=== PATIENT | male | born 1960 | race Caucasian/White ===

== ENCOUNTER 2017-08-01 18:48 | Inpatient (IN) | payer MEDICARE, OTHER ==
[~2017-08-01] VITALS: Ht 170.2 cm; Wt 87.8 kg
[~2017-08-01 18:48] MED LIST: ABRE10CR TOP; ATIV2INJ2 IM; BACL10TA GT; BISA10R PR; CLIN75S GT; DILA50CH GT; DIPH2%T PO/GT; DUONI NEB; FLEEENE3 PR; FOLI1TAB GT; LORA0.5T GT; LORA1TAB GT; METO25 G-TUBE; MIRA33502 GT; OMEP20TA G-TUBE; PHEN97.2 GT; PHENO15 GT; PROM25R PR; QUET1TAB67 GT; SERO50TA G-TUBE; STOO100C GT; TAB-TAB GT; VITA100020 G-TUBE
[2017-08-01 18:59] VITALS: BP 160/90; PULSE 90; RESP 18; TEMP 97.7; O2SAT 100
--- NOTE | 2017-08-01 20:08 | PD ---
HPI Chief Complaint: Medical Clearance Time Seen by Provider: 19:49 Travel History International Travel<30 days: No Contact w/Intl Traveler<30days: No Traveled to known affect area: No History of Present Illness HPI 57-year-old male with severe cerebral palsy presents to emergency Department for suspicion of aspiration after dinner tonight. Staff was concerned he may aspirated because he began choking on food during his meal. Today he is accompanied by Rosey who is a staff member at his facility. Patient is unable to tell me anything about what is going on today and is minimally interactive with me so history obtained form Rosey. Patient also has a G-tube and does consume pureed food orally. PFSH Past Medical History Cancer: No Cardiovascular Problems: No Developmental Delay: Yes (MENTAL RETARDATION) Diminished Hearing: No Gastrointestinal Disorders: Yes (CONSTIPATION, G TUBE) GERD: Yes Glaucoma: No Genitourinary: Yes (INCONTINENT OF URINE) Hepatitis: No Hypertension: Yes Implanted Vascular Access Dvce: Yes Medical other: Yes (DEVELOPMENTAL DELAY, GERD, SCOLIOSIS, ENCEPHALOPATHY, DYSPHAGIA) Musculoskeletal: Yes (SCOLIOSIS) Neurologic: Yes (ENCEPHALOPATHY, DYSPHAGIA, PROFOUND MR, CONVULSIVE D/O ) Psychiatric: Yes (PROFOUND MR) Respiratory: Yes (ASPIRATION PNEUMONIA) Immunizations Current: Yes Pneumonia: Yes (HX OF ASPIRATION) Seizures: Yes Thyroid Disease: No Past Surgical History Abdominal Surgery: Yes (G TUBE INSERTION) Body Medical Devices: G-TUBE Cardiac Surgery: No Ear Surgery: No Endocrine Surgery: No Eye Surgery: No Genitourinary Surgery: No Gynecologic Surgery: No Oral Surgery: No Thoracic Surgery: No Other Surgery: Yes (PEG TUBE) Social History Alcohol Use: No Tobacco Use: No Substance Use: No Allergies-Medications (Allergen,Severity, Reaction): Coded Allergies: lamotrigine (Unverified Allergy, Severe, 08/01/17) Reported Meds & Prescriptions Reported Meds & Active Scripts Active Reported B12 (Cyanocobalamin) 1,000 Mcg Tab G-TUBE Miralax Powder (Polyethylene Glycol 3350 Powder) 17 Gm Powd 17 Gm PO DAILY Mix and dissolve one measuring cap-ful (17 grams) in water or juice. Folic Acid 0.8 Mg Tab 1,000 Mcg PO DAILY Omeprazole 20 Mg Tab 20 Mg PO DAILY Furosemide 20 Mg Tab 20 Mg PO DAILY Metoprolol Tartrate 25 Mg Tab 25 Mg PO BID Acetaminophen ER (Acetaminophen) 650 Mg Tablet.er PO BID Lorazepam 0.5 Mg Tab 0.5 Mg PO BID PRN Baclofen 10 Mg Tab 10 Mg G-TUBE BID Lorazepam 1 Mg Tab 1 Mg PO DAILY PRN Seroquel (Quetiapine Fumarate) 25 Mg Tab 75 Mg PO DAILY Seroquel (Quetiapine Fumarate) 100 Mg Tab 100 Mg PO HS Phenobarbital 97.2 Mg Tab 113.46 Mg PO HS Docusate Sodium 100 Mg Cap 100 Mg G-TUBE DAILY Thera M Plus (Multivitamins/Minerals Therapeutic) 1 Tab 1 Tab G-TUBE DAILY Lorazepam 1 Mg Tab 1 Mg PO DAILY PRN Review of Systems ROS Limitations: Other: (- Severe crebral palsy- history from [place]) Respiratory: Positive: Cough Musculoskeletal: Positive: Limited ROM (muscle wasting with contractions of extremities.) Physical Exam Exam Limitations: Other: (Severe Cerebral palsy) Narrative GENERAL: Well-developed well-nourished, SKIN: Focused skin assessment warm/dry. HEAD: Atraumatic. Normocephalic. EYES: Pupils equal and round. No scleral icterus. No injection or drainage. Left eye blind ENT: No nasal bleeding or discharge. Mucous membranes moist. Unable to visualize the pharynx NECK: Trachea midline. No JVD. CARDIOVASCULAR: Regular rate and rhythm. No murmur appreciated. RESPIRATORY: No accessory muscle use. Clear to auscultation. Breath sounds equal bilaterally. Left lower lobes with mild rales. GASTROINTESTINAL: Abdomen soft, non-tender, nondistended. Hepatic and splenic margins not palpable. G tube in place, mid abdominal without obvious leakage, erythema, edema. MUSCULOSKELETAL: No obvious deformities. Muscle wasting and contractions of joints NEUROLOGICAL: Severe cerebral palsy, . Data Data Last Documented VS Vital Signs Date Time Temp Pulse Resp B/P (MAP) Pulse Ox O2 Delivery O2 Flow Rate FiO2 08/01/17 18:59 97.7 90 18 160/90 (113) 100 Orders Orders Chest, Pa & Lat (08/01/17 ) Complete Blood Count With Diff (08/01/17 21:09) Act Partial Throm Time (Ptt) (08/01/17 21:09) Comprehensive Metabolic Panel (08/01/17 21:09) Prothrombin Time / Inr (Pt) (08/01/17 21:09) Vancomycin Inj (Vancomycin Inj) (08/01/17 21:15) Piperacil-Tazo 4.5 Gm Premix (Zosyn 4.5 (08/01/17 21:15) Lorazepam Inj (Ativan Inj) (08/01/17 21:45) Blood Culture (08/01/17 21:40) Admit Order (Ed Use Only) (08/02/17 00:21) Labs Laboratory Tests Test 08/01/17 22:24 White Blood Count 7.8 TH/MM3 Red Blood Count 4.67 MIL/MM3 Hemoglobin 14.8 GM/DL Hematocrit 44.4 % Mean Corpuscular Volume 95.0 FL Mean Corpuscular Hemoglobin 31.7 PG Mean Corpuscular Hemoglobin Concent 33.4 % Red Cell Distribution Width 13.5 % Platelet Count 239 TH/MM3 Mean Platelet Volume 8.4 FL Neutrophils (%) (Auto) 66.0 % Lymphocytes (%) (Auto) 21.0 % Monocytes (%) (Auto) 10.5 % Eosinophils (%) (Auto) 2.0 % Basophils (%) (Auto) 0.5 % Neutrophils # (Auto) 5.1 TH/MM3 Lymphocytes # (Auto) 1.6 TH/MM3 Monocytes # (Auto) 0.8 TH/MM3 Eosinophils # (Auto) 0.2 TH/MM3 Basophils # (Auto) 0.0 TH/MM3 CBC Comment DIFF FINAL Differential Comment Prothrombin Time 11.3 SEC Prothromb Time International Ratio 1.0 RATIO Activated Partial Thromboplast Time 25.2 SEC Blood Urea Nitrogen 20 MG/DL Creatinine 0.83 MG/DL Random Glucose 92 MG/DL Total Protein 7.7 GM/DL Albumin 4.0 GM/DL Calcium Level 9.7 MG/DL Alkaline Phosphatase 147 U/L Aspartate Amino Transf (AST/SGOT) 18 U/L Alanine Aminotransferase (ALT/SGPT) 29 U/L Total Bilirubin 0.1 MG/DL Sodium Level 141 MEQ/L Potassium Level 4.2 MEQ/L Chloride Level 104 MEQ/L Carbon Dioxide Level 31.7 MEQ/L Anion Gap 5 MEQ/L Estimat Glomerular Filtration Rate 95 ML/MIN [facility] Medical Decision Making Medical Screen Exam Complete: Yes Emergency Medical Condition: Yes Differential Diagnosis Aspiration pneumonia versus community-acquired pneumonia versus aspiration Narrative Course 57-year-old male here with staff from [facility] after potential aspiration from dinner tonight. Physical exam revealed severe cerebral palsy patient in no acute distress. Difficulty assessing patient secondary to patient movement. Patient is unable to articulate any pain or discomfort but does not exhibit increased work of breathing or distress. G-tube in place without leakage, erythema, exudate. Chest x-ray demonstrates. Airspace consolidation at the lung bases and left perihilar region most characteristic of aspiration or pneumonia. No significant effusion. Ativan administered for IV access- multiple attempts made prior to administration. Will be admitted for pneumonia. Labs pending. Discussed case with Dr. Mitchell and he will take over care. Diagnosis Primary Impression: Aspiration into lower respiratory tract Qualified Codes: T17.800A - Unspecified foreign body in other parts of respiratory tract causing asphyxiation, initial encounter Referrals: Primary Care Physician Condition: Stable Jesi Wilson Aug 01, 2017 20:08
--- NOTE | 2017-08-01 20:56 | RADRPT ---
EXAM DATE/TIME: 08/01/2017 20:11 [place] COMPARISON: CHEST SINGLE AP, February 01, 2016, 12:12. INDICATIONS : Short of breath MEDICAL HISTORY : Metal retardation, GERD, hx of aspiration, and seizures SURGICAL HISTORY : Hx of G tube insertion ENCOUNTER: Initial ACUITY: 1 day PAIN SCORE: Non-responsive. LOCATION: chest FINDINGS: There is patchy airspace consolidation at the lung bases and left perihilar region. No significant ef fusion. Scoliosis. No pneumothorax. CONCLUSION: 1. Airspace consolidation at the lung bases and left perihilar region most characteristic of aspirati on or pneumonia. No significant effusion. Aditya Mccabe MD on August 01, 2017 at 20:54 Board Certified Radiologist. This report was verified electronically.
[2017-08-01] MEDS ORDERED: VANCOMYCIN INJ 1,750 MG in SODIUM CHLORID 0.9% 500 ML INJ 500 ML IV ONE (21:15)
[2017-08-01] MEDS ORDERED: PIPERACIL-TAZO 4.5 GM PREMIX 100 ML IV ONE (21:15)
[2017-08-01] MEDS ORDERED: LORazepam 2 MG/ML VIAL IM ONE (21:45)
[2017-08-01 22:36] LABS: AUTOMATED NEUTROPHIL # 5.1 TH/MM3 (1.8-7.7); BASOPHIL % 0.5 % (0.0-2.0); EOSINOPHIL # 0.2 TH/MM3 (0-0.4); HEMATOCRIT 44.4 % (39.0-51.0); HEMO FLAGS DIFF FINAL; LYMPHOCYTE # 1.6 TH/MM3 (1.0-4.8); MEAN CORPUSCULAR HEMOGLOBIN 31.7 PG (27.0-34.0); MEAN CORPUSCULAR HGB CONC 33.4 % (32.0-36.0); MONO % 10.5 % (0.0-8.0); PLATELET COUNT 239 TH/MM3 (150-450); RED BLOOD COUNT 4.67 MIL/MM3 (4.50-5.90); RED CELL DISTRIBUTION WIDTH 13.5 % (11.6-17.2); WHITE BLOOD COUNT 7.8 TH/MM3 (4.0-11.0)
[2017-08-01 22:55] LABS: APTT (PATIENT) 25.2 SEC (24.3-30.1); PROTHROMBIN TIME - PATIENT 11.3 SEC (9.8-11.6)
[2017-08-01 23:08] LABS: ANION GAP 5 MEQ/L (5-15); AST (GOT) 18 U/L (15-37); BICARBONATE 31.7 MEQ/L (21.0-32.0); BLOOD UREA NITROGEN 20 MG/DL (7-18); CHLORIDE 104 MEQ/L (98-107); GLOMERULAR FILTRATION RATE 95 ML/MIN (>89); POTASSIUM 4.2 MEQ/L (3.5-5.1); SODIUM (NA) 141 MEQ/L (136-145)
[2017-08-01 23:09] LABS: ALT (GPT) 29 U/L (12-78)
[2017-08-01 23:11] LABS: ALKALINE PHOSPHATASE 147 U/L (45-117); TOTAL BILIRUBIN ADULT 0.1 MG/DL (0.2-1.0)
[2017-08-02] VITALS (12 sets, daily range): BP systolic 121–170; BP diastolic 64–92; PULSE 70–108; RESP 17–22; TEMP 96.4–98.8; O2SAT 91–97
[2017-08-02] MEDS ORDERED: FURO20TA PO (00:07)
[2017-08-02] MEDS ORDERED: METO25TA3 PO (00:07)
[2017-08-02] MEDS ORDERED: FOLI800T PO (00:07)
[2017-08-02] MEDS ORDERED: OMEP20TA PO (00:07)
[2017-08-02] MEDS ORDERED: ACET650T39 PO (00:07)
[2017-08-02] MEDS ORDERED: LORA-373 PO (00:07)
[2017-08-02] MEDS ORDERED: CYAN1TAB24 G-TUBE (00:07)
[2017-08-02] MEDS ORDERED: PHENO100 PO (00:07)
[2017-08-02] MEDS ORDERED: SERO25TA PO (00:07)
[2017-08-02] MEDS ORDERED: SERO100T PO (00:07)
[2017-08-02] MEDS ORDERED: LORA1TAB12 PO (00:07)
[2017-08-02] MEDS ORDERED: BACL10TA G-TUBE (00:07)
[2017-08-02] MEDS ORDERED: THERM G-TUBE (00:07)
[2017-08-02] MEDS ORDERED: MIRA3350 PO (00:07)
[2017-08-02] MEDS ORDERED: DOCU100C G-TUBE (00:07)
--- NOTE | 2017-08-02 00:13 | PD ---
Physical Exam Narrative Patient was seen by my assistance and signed out to me. Data Data Last Documented VS Vital Signs Date Time Temp Pulse Resp B/P (MAP) Pulse Ox O2 Delivery O2 Flow Rate FiO2 08/01/17 18:59 97.7 90 18 160/90 (113) 100 Orders Orders Chest, Pa & Lat (08/01/17 ) Complete Blood Count With Diff (08/01/17 21:09) Act Partial Throm Time (Ptt) (08/01/17 21:09) Comprehensive Metabolic Panel (08/01/17 21:09) Prothrombin Time / Inr (Pt) (08/01/17 21:09) Vancomycin Inj (Vancomycin Inj) (08/01/17 21:15) Piperacil-Tazo 4.5 Gm Premix (Zosyn 4.5 (08/01/17 21:15) Lorazepam Inj (Ativan Inj) (08/01/17 21:45) Blood Culture (08/01/17 21:40) Labs Laboratory Tests Test 08/01/17 22:24 White Blood Count 7.8 TH/MM3 Red Blood Count 4.67 MIL/MM3 Hemoglobin 14.8 GM/DL Hematocrit 44.4 % Mean Corpuscular Volume 95.0 FL Mean Corpuscular Hemoglobin 31.7 PG Mean Corpuscular Hemoglobin Concent 33.4 % Red Cell Distribution Width 13.5 % Platelet Count 239 TH/MM3 Mean Platelet Volume 8.4 FL Neutrophils (%) (Auto) 66.0 % Lymphocytes (%) (Auto) 21.0 % Monocytes (%) (Auto) 10.5 % Eosinophils (%) (Auto) 2.0 % Basophils (%) (Auto) 0.5 % Neutrophils # (Auto) 5.1 TH/MM3 Lymphocytes # (Auto) 1.6 TH/MM3 Monocytes # (Auto) 0.8 TH/MM3 Eosinophils # (Auto) 0.2 TH/MM3 Basophils # (Auto) 0.0 TH/MM3 CBC Comment DIFF FINAL Differential Comment Prothrombin Time 11.3 SEC Prothromb Time International Ratio 1.0 RATIO Activated Partial Thromboplast Time 25.2 SEC Blood Urea Nitrogen 20 MG/DL Creatinine 0.83 MG/DL Random Glucose 92 MG/DL Total Protein 7.7 GM/DL Albumin 4.0 GM/DL Calcium Level 9.7 MG/DL Alkaline Phosphatase 147 U/L Aspartate Amino Transf (AST/SGOT) 18 U/L Alanine Aminotransferase (ALT/SGPT) 29 U/L Total Bilirubin 0.1 MG/DL Sodium Level 141 MEQ/L Potassium Level 4.2 MEQ/L Chloride Level 104 MEQ/L Carbon Dioxide Level 31.7 MEQ/L Anion Gap 5 MEQ/L Estimat Glomerular Filtration Rate 95 ML/MIN [facility] Supervised Visit with MICHELLE: Yes Interpretation(s) 12:08 AM. Chest x-ray shows consolidation in the lung bases and left perihilar region. CBC within normal limit. CMP within normal limit. Vancomycin and Zosyn IV given. Diagnosis Primary Impression: Pneumonia Qualified Codes: J69.0 - Pneumonitis due to inhalation of food and vomit Admitting Information Admitting Physician Requests: Admit Referrals: Primary Care Physician Condition: Stable Chu Mitchell MD Aug 02, 2017 00:13
[2017-08-02] MEDS ORDERED: ACETAMINOPHEN/HYDROcodone 325 MG/5 MG TAB PO PRN (00:30)
[2017-08-02] MEDS ORDERED: SODIUM CHLORIDE 0.9% FLUSH 10 ML FLUSH IV FLUSH PRN (00:30)
[2017-08-02] MEDS ORDERED: NALOXONE HCL 0.4 MG/ML AMP IV PUSH PRN (00:30)
[2017-08-02] MEDS ORDERED: MAGNESIUM HYDROXIDE SUSP 30 ML CUP PO PRN (00:30)
[2017-08-02] MEDS ORDERED: ONDANSETRON HCL 4 MG/2 ML VIAL IVP PRN (00:30)
[2017-08-02] MEDS: SODIUM CHLOR 0.9% 1000 ML INJ 1,000 ML IV SCH ×3 (01:35→20:21)
[2017-08-02] MEDS: ENOXAPARIN SODIUM 40 MG/0.4 ML SYRINGE SQ SCH (01:36)
[2017-08-02] MEDS ORDERED: LORazepam 1 MG TAB PO PRN (03:00)
--- NOTE | 2017-08-02 03:11 | HHI.HP ---
[facility] Service [facility] Primary Care Physician Unknown Admission Diagnosis pneumonia. Diagnoses: (1) Pneumonia Diagnosis: Principal (2) Aspiration into lower respiratory tract Diagnosis: Principal (3) Gastrostomy tube dysfunction Diagnosis: Principal (4) Choking Diagnosis: Principal Travel History International Travel<30 Days: No Contact w/Intl Traveler <30 Da: No Traveled to Known Affected Are: No History of Present Illness Mr. Stephens is a 57 year old male. He has a history of cerebral palsy and has been nonverbal for life. He is unable to provide any history and his cognitive status makes him noncontributory. He was brought in by care providers secondary to suspicion of aspiration. He has been having increased cough recently. Imaging in the ER reveals that he does have evidence for aspiration pneumonia. Vancomycin and Zosyn have been provided. Patient is unable to express any pain or discomfort. Review of Systems ROS Limitations: Clinical Condition, Altered Mental Status, Unresponsive Constitutional: DENIES: Fever, Chills, Change in appetite Endocrine: DENIES: Heat/cold intolerance Eyes: DENIES: Blurred vision, Diplopia, Eye inflammation, Eye pain Cardiovascular: DENIES: Chest pain, Palpitations, Syncope Gastrointestinal: DENIES: Abdominal pain, Black stools, Bloody stools Past Family Social History Past Medical History per report interstitial lung disease MR/cerebral palsy/nonverbal Seizures poor swallowing Past Surgical History G-tube placement Reported Medications Reported Meds & Active Scripts Active Reported B12 (Cyanocobalamin) 1,000 Mcg Tab G-TUBE Miralax Powder (Polyethylene Glycol 3350 Powder) 17 Gm Powd 17 Gm PO DAILY Mix and dissolve one measuring cap-ful (17 grams) in water or juice. Folic Acid 0.8 Mg Tab 1,000 Mcg PO DAILY Omeprazole 20 Mg Tab 20 Mg PO DAILY Furosemide 20 Mg Tab 20 Mg PO DAILY Metoprolol Tartrate 25 Mg Tab 25 Mg PO BID Acetaminophen ER (Acetaminophen) 650 Mg Tablet.er PO BID Lorazepam 0.5 Mg Tab 0.5 Mg PO BID PRN Baclofen 10 Mg Tab 10 Mg G-TUBE BID Lorazepam 1 Mg Tab 1 Mg PO DAILY PRN Seroquel (Quetiapine Fumarate) 25 Mg Tab 75 Mg PO DAILY Seroquel (Quetiapine Fumarate) 100 Mg Tab 100 Mg PO HS Phenobarbital 97.2 Mg Tab 113.46 Mg PO HS Docusate Sodium 100 Mg Cap 100 Mg G-TUBE DAILY Thera M Plus (Multivitamins/Minerals Therapeutic) 1 Tab 1 Tab G-TUBE DAILY Lorazepam 1 Mg Tab 1 Mg PO DAILY PRN Allergies: Coded Allergies: lamotrigine (Unverified Allergy, Severe, 08/01/17) Active Ordered Medications Administered Medications Medications (Trade) Dose Ordered Sig/Wang Route PRN Reason Start Time Stop Time Status Last Admin Dose Admin Sodium Chloride 1,000 ml @ 100 mls/hr Q10H IV 08/02/17 00:21 08/02/17 01:35 Sodium Chloride (NS Flush) 2 ml UNSCH PRN IV FLUSH FLUSH AFTER USING IV ACCESS 08/02/17 00:30 08/02/17 01:36 Enoxaparin Sodium (Lovenox Inj) 40 mg Q24H SQ 08/02/17 01:00 08/02/17 01:36 Family History None Social History lives at [facility]. No tobacco alcohol or or illicit drug abuse Physical Exam Vital Signs Vital Signs Date Time Temp Pulse Resp B/P (MAP) Pulse Ox O2 Delivery O2 Flow Rate FiO2 08/02/17 01:05 08/02/17 01:03 18 145/73 (97) 97 Room Air 08/01/17 18:59 97.7 90 18 160/90 (113) 100 Physical Exam GENERAL: NAD, A&Ox0, nonverbal HEAD: Normocephalic. NECK: Supple, trachea midline. No lymphadenopathy. EYES: No scleral icterus. No injection or drainage. CARDIOVASCULAR: Regular rate and rhythm without murmurs, gallops, or rubs. RESPIRATORY: Breath sounds equal bilaterally. No accessory muscle use. Coarse breath sounds bilaterally GASTROINTESTINAL: Abdomen soft, non-tender, nondistended. MUSCULOSKELETAL: No cyanosis, or edema. Diffuse contractures. SKIN: Warm and dry. NEURO: No focal neurological deficitis. Laboratory Laboratory Tests Test 08/01/17 22:24 White Blood Count 7.8 Red Blood Count 4.67 Hemoglobin 14.8 Hematocrit 44.4 Mean Corpuscular Volume 95.0 Mean Corpuscular Hemoglobin 31.7 Mean Corpuscular Hemoglobin Concent 33.4 Red Cell Distribution Width 13.5 Platelet Count 239 Mean Platelet Volume 8.4 Neutrophils (%) (Auto) 66.0 Lymphocytes (%) (Auto) 21.0 Monocytes (%) (Auto) 10.5 Eosinophils (%) (Auto) 2.0 Basophils (%) (Auto) 0.5 Neutrophils # (Auto) 5.1 Lymphocytes # (Auto) 1.6 Monocytes # (Auto) 0.8 Eosinophils # (Auto) 0.2 Basophils # (Auto) 0.0 CBC Comment DIFF FINAL Differential Comment Prothrombin Time 11.3 Prothromb Time International Ratio 1.0 Activated Partial Thromboplast Time 25.2 Blood Urea Nitrogen 20 Creatinine 0.83 Random Glucose 92 Total Protein 7.7 Albumin 4.0 Calcium Level 9.7 Alkaline Phosphatase 147 Aspartate Amino Transf (AST/SGOT) 18 Alanine Aminotransferase (ALT/SGPT) 29 Total Bilirubin 0.1 Sodium Level 141 Potassium Level 4.2 Chloride Level 104 Carbon Dioxide Level 31.7 Anion Gap 5 Estimat Glomerular Filtration Rate 95 Date/Time Source Procedure Growth Status 08/01/17 22:24 Blood Peripheral Aerobic Blood Culture Pending Received 08/01/17 22:24 Blood Peripheral Anaerobic Blood Culture Pending Received Result Diagram: 08/01/17222308/01/172223 Caprini VTE Risk Assessment Caprini VTE Risk Assessment: Mod/High Risk (score >= 2) Caprini Risk Assessment Model Point Value = 1 Point Value = 2 Point Value = 3 Point Value = 5 Age 41-60 Minor surgery BMI > 25 kg/m2 Swollen legs Varicose veins or History of unexplained or recurrent spontaneous Oral contraceptives or hormone replacement Sepsis (< 1 month) Serious lung disease, including pneumonia (< 1 month) Abnormal pulmonary function Acute myocardial infarction Congestive heart failure (< 1 month) History of inflammatory bowel disease Medical patient at bed rest Age 61-74 Arthroscopic surgery Major open surgery (> 45 min) Laparoscopic surgery (> 45 min) Malignancy Confined to bed (> 72 hours) Immobilizing plaster cast Central venous access Age >= 75 History of VTE Family history of VTE Factor V Leiden Prothrombin [id number] Lupus anticoagulant Anticardiolipin antibodies Elevated serum homocysteine Heparin-induced thrombocytopenia Other congenital or acquired thrombophilia Stroke (< 1 month) Elective arthroplasty Hip, pelvis, or leg fracture Acute spinal cord injury (< 1 month) Prophylaxis Regimen Total Risk Factor Score Risk Level Prophylaxis Regimen 0-1 Low Early ambulation 2 Moderate Order ONE of the following: *Sequential Compression Device (SCD) *Heparin 5000 units SQ BID 3-4 Higher Order ONE of the following medications: *Heparin 5000 units SQ TID *Enoxaparin/Lovenox 40 mg SQ daily (WT < 150 kg, CrCl > 30 mL/min) *Enoxaparin/Lovenox 30 mg SQ daily (WT < 150 kg, CrCl > 10-29 mL/min) *Enoxaparin/Lovenox 30 mg SQ BID (WT < 150 kg, CrCl > 30 mL/min) AND/OR *Sequential Compression Device (SCD) 5 or more Highest Order ONE of the following medications: *Heparin 5000 units SQ TID (Preferred with Epidurals) *Enoxaparin/Lovenox 40 mg SQ daily (WT < 150 kg, CrCl > 30 mL/min) *Enoxaparin/Lovenox 30 mg SQ daily (WT < 150 kg, CrCl > 10-29 mL/min) *Enoxaparin/Lovenox 30 mg SQ BID (WT < 150 kg, CrCl > 30 mL/min) AND *Sequential Compression Device (SCD) Assessment and Plan Problem List: (1) Gastrostomy tube dysfunction ICD Code: K94.23 - Gastrostomy tube dysfunction Status: Acute (2) Choking ICD Code: T17.308A - Choking Status: Acute (3) Pneumonia ICD Code: J18.9 - Pneumonia, unspecified organism Status: Acute (4) Aspiration into lower respiratory tract ICD Code: T17.800A - Unspecified foreign body in other parts of respiratory tract causing asphyxiation, initial encounter Status: Acute Assessment and Plan Assessment and plan 57-year-old male with cerebral palsy who is nonverbal, admitted with aspiration pneumonia Aspiration pneumonia Chronic dysphasia Chronic tube feeds Vancomycin Zosyn Monitor for improvement Speech therapy evaluation Resume tube feeds based on ST findings/recommendations Cerebral palsy Interstitial lung disease Seizure disorder No change to baseline treatments Supportive care DVT prophylaxis Lovenox Physician Certification 2 Midnight Certification Type: Admission for Inpatient Services Order for Inpatient Services The services are ordered in accordance with Medicare regulations or non- Medicare payer requirements, as applicable. In the case of services not specified as inpatient-only, they are appropriately provided as inpatient services in accordance with the 2-midnight benchmark. Estimated LOS (days): 4 days is the estimated time the patient will need to remain in the hospital, assuming treatment plan goals are met and no additional complications. Post-Hospital Plan: Home Problem Qualifiers (1) Pneumonia: Qualified Codes: J69.0 - Pneumonitis due to inhalation of food and vomit (2) Aspiration into lower respiratory tract: Qualified Codes: T17.800A - Unspecified foreign body in other parts of respiratory tract causing asphyxiation, initial encounter Eric Caruso MD Aug 02, 2017 03:11
[2017-08-02] MEDS ORDERED: Vancomycin Consult Pharmacy 1 EA OTHER SCH (03:15)
[2017-08-02] MEDS ORDERED: PILL SPLITTER OTHER PRN (03:15)
[2017-08-02] MEDS: PIPERACIL-TAZO 3.375 GM PREMIX 50 ML IV SCH ×2 (09:00→17:00)
[2017-08-02] MEDS: SODIUM CHLORIDE 0.9% FLUSH 10 ML FLUSH IV FLUSH SCH ×2 (09:00→21:00)
[2017-08-02] MEDS: QUEtiapine FUMARATE 25 MG TAB PO SCH (09:00)
[2017-08-02] MEDS: BACLOFEN 10 MG TAB G-TUBE SCH ×2 (09:00→21:37)
[2017-08-02] MEDS: PANTOPRAZOLE SOD 20 MG DELAYED RELEASE TAB PO SCH (09:00)
[2017-08-02] MEDS: MULTIVITAMINS/MINERALS THERAPEUTIC TAB G-TUBE SCH (09:00)
[2017-08-02] MEDS: METOPROLOL TARTRATE 25 MG TAB PO SCH ×2 (09:00→21:37)
[2017-08-02] MEDS: DOCUSATE SODIUM 50 MG/SENNA 8.6 MG TAB PO SCH ×2 (09:00→21:37)
[2017-08-02] MEDS: POLYETHYLENE GLYCOL 17 GM PKG PO SCH (09:00)
[2017-08-02] MEDS: FOLIC ACID 1 MG TAB PO SCH (09:00)
[2017-08-02] MEDS: DOCUSATE SODIUM 100 MG CAP G-TUBE SCH (09:00)
[2017-08-02] MEDS: FUROSEMIDE 20 MG TAB PO SCH (09:00)
--- NOTE | 2017-08-02 09:09 | EKG ---
Date Performed: 08/02/2017 Time Performed: 00:01:15 PTAGE: 57 years EKG: Sinus rhythm POSSIBLE LEFT ATRIAL ENLARGEMENT NONSPECIFIC T-WAVE ABNORMALITY BORDERLINE ECG PREVIOUS TRACING : 01/18/2010 10.41 No significant change from previous tracing noted. DOCTOR: Abrahan Coon Interpretating Date/Time 08/02/2017 09:08:46
--- NOTE | 2017-08-02 11:13 | HHI.PR ---
Subjective Remarks Follow-up pneumonia. Patient is nonverbal. He is coughing intermittently during exam. Objective Vitals Vital Signs Date Time Temp Pulse Resp B/P (MAP) Pulse Ox O2 Delivery O2 Flow Rate FiO2 08/02/17 08:13 96.4 77 17 144/75 (98) 93 08/02/17 08:00 98.3 83 20 131/92 (105) 93 08/02/17 05:12 97.6 80 18 121/64 (83) 93 08/02/17 02:09 74 08/02/17 01:30 98.3 75 18 145/91 (109) 92 08/02/17 01:30 Room Air 08/02/17 01:08 98.3 75 18 145/91 (109) 92 08/02/17 01:05 08/02/17 01:03 18 145/73 (97) 97 Room Air 08/01/17 18:59 97.7 90 18 160/90 (113) 100 I/O 08/01/17 08/01/17 08/01/17 08/02/17 08/02/17 08/02/17 07:00 15:00 23:00 07:00 15:00 23:00 Intake Total 865.5 ml Balance 865.5 ml Intake Oral 0 ml IV Total 865.5 ml # Voids 1 # Bowel Movements 0 Result Diagram: 08/01/17222308/01/17 2224 Imaging Last Impressions Chest X-Ray 08/01/17 0000 Signed Impressions: Service Date/Time: July 20:11 - CONCLUSION: 1. Airspace consolidation at the lung bases and left perihilar region most characteristic of aspiration or pneumonia. No significant effusion. dAitya Mccabe MD Objective Remarks General: No acute distress. Heart: Regular rate and rhythm. No murmur. Lungs: Coarse breath sounds bilaterally. Breathing is nonlabored. Abdomen: Soft, nontender, nondistended. Extremities: No lower extremity edema. Contractures of all 4 extremities noted. Psych: Alert, not oriented. Procedures None Urinary Catheter: No Vascular Central Line Catheter: No A/P Problem List: (1) Gastrostomy tube dysfunction ICD Code: K94.23 - Gastrostomy tube dysfunction Status: Acute (2) Choking ICD Code: T17.308A - Choking Status: Acute (3) Pneumonia ICD Code: J18.9 - Pneumonia, unspecified organism Status: Acute (4) Aspiration into lower respiratory tract ICD Code: T17.800A - Unspecified foreign body in other parts of respiratory tract causing asphyxiation, initial encounter Status: Acute Assessment and Plan 1. Aspiration pneumonia: Patient has chronic dysphagia and is on tube feeds. Continue IV antibiotics. Speech therapy eval ordered. 2. Cerebral palsy: Chronic. 3. Seizure disorder: Continue antiepileptic medications. 4. DVT prophylaxis: Lovenox. Problem Qualifiers (1) Pneumonia: Qualified Codes: J69.0 - Pneumonitis due to inhalation of food and vomit (2) Aspiration into lower respiratory tract: Qualified Codes: T17.800A - Unspecified foreign body in other parts of respiratory tract causing asphyxiation, initial encounter Levi Crabtree MD Aug 02, 2017 11:13
[2017-08-02] MEDS: VANCOMYCIN 1,500 MG/NS 500 ML IV SCH ×4 (12:41→23:00)
[2017-08-02] MEDS ORDERED: VANCOMYCIN INJ 1,000 MG in SODIUM CHLOR 0.9% 250 ML INJ 250 ML IV SCH (16:00)
[2017-08-02] MEDS: LORazepam 0.5 MG TAB PO PRN (17:46)
[2017-08-02] MEDS: QUEtiapine FUMARATE 100 MG TAB PO SCH (21:37)
[2017-08-02] MEDS: PHENobarbital 32.4 MG TAB G-TUBE SCH (21:37)
[2017-08-03 00:37] VITALS: BP 158/76; PULSE 63; RESP 20; TEMP 98.4; O2SAT 94
[2017-08-03] MEDS: PIPERACIL-TAZO 3.375 GM PREMIX 50 ML IV SCH ×2 (01:00→09:00)
[2017-08-03] MEDS: LORazepam 1 MG TAB PO PRN ×2 (02:10→16:17)
[2017-08-03] MEDS: ENOXAPARIN SODIUM 40 MG/0.4 ML SYRINGE SQ SCH (02:10)
[2017-08-03 04:20] VITALS: BP 117/63; PULSE 65; RESP 20; TEMP 98.7; O2SAT 92
[2017-08-03] MEDS: SODIUM CHLOR 0.9% 1000 ML INJ 1,000 ML IV SCH ×2 (06:21→21:43)
[2017-08-03 08:00] VITALS: BP 140/114; PULSE 70; RESP 20; TEMP 97.3; O2SAT 91
[2017-08-03 08:21] LABS: AUTOMATED NEUTROPHIL # 2.5 TH/MM3 (1.8-7.7); BASOPHIL % 0.5 % (0.0-2.0); EOSINOPHIL # 0.1 TH/MM3 (0-0.4); EOSINOPHIL % 3.1 % (0.0-4.0); HEMATOCRIT 42.5 % (39.0-51.0); HEMO FLAGS DIFF FINAL; LYMPH % 29.1 % (9.0-44.0); LYMPHOCYTE # 1.3 TH/MM3 (1.0-4.8); MEAN CELL VOLUME 95.3 FL (80.0-100.0); MEAN CORPUSCULAR HGB CONC 33.6 % (32.0-36.0); MONO % 9.5 % (0.0-8.0); NEUT % 57.8 % (16.0-70.0); PLATELET COUNT 198 TH/MM3 (150-450); RED BLOOD COUNT 4.46 MIL/MM3 (4.50-5.90); RED CELL DISTRIBUTION WIDTH 13.8 % (11.6-17.2); WHITE BLOOD COUNT 4.3 TH/MM3 (4.0-11.0)
[2017-08-03 08:58] LABS: ALKALINE PHOSPHATASE 135 U/L (45-117); ALT (GPT) 25 U/L (12-78); ANION GAP 8 MEQ/L (5-15); AST (GOT) 19 U/L (15-37); BICARBONATE 24.8 MEQ/L (21.0-32.0); BLOOD UREA NITROGEN 14 MG/DL (7-18); CHLORIDE 105 MEQ/L (98-107); GLOMERULAR FILTRATION RATE 159 ML/MIN (>89); POTASSIUM 4.1 MEQ/L (3.5-5.1); SODIUM (NA) 138 MEQ/L (136-145); TOTAL BILIRUBIN ADULT 0.3 MG/DL (0.2-1.0)
[2017-08-03] MEDS: SODIUM CHLORIDE 0.9% FLUSH 10 ML FLUSH IV FLUSH SCH ×2 (09:00→21:00)
[2017-08-03] MEDS: MULTIVITAMINS/MINERALS THERAPEUTIC TAB G-TUBE SCH (09:06)
[2017-08-03] MEDS: BACLOFEN 10 MG TAB G-TUBE SCH ×2 (09:06→21:43)
[2017-08-03] MEDS: METOPROLOL TARTRATE 25 MG TAB PO SCH ×2 (09:06→21:43)
[2017-08-03] MEDS: QUEtiapine FUMARATE 25 MG TAB PO SCH (09:07)
[2017-08-03] MEDS: PANTOPRAZOLE SOD 20 MG DELAYED RELEASE TAB PO SCH (09:07)
[2017-08-03] MEDS: FOLIC ACID 1 MG TAB PO SCH (09:07)
[2017-08-03] MEDS: FUROSEMIDE 20 MG TAB PO SCH (09:12)
[2017-08-03] MEDS: POLYETHYLENE GLYCOL 17 GM PKG PO SCH (09:12)
[2017-08-03] MEDS: DOCUSATE SODIUM 50 MG/SENNA 8.6 MG TAB PO SCH ×2 (09:12→21:43)
[2017-08-03] MEDS: DOCUSATE SODIUM 100 MG CAP G-TUBE SCH (09:12)
[2017-08-03] MEDS ORDERED: PHARMACY ORDERED LAB ONE (10:45)
[2017-08-03] MEDS: VANCOMYCIN 1,500 MG/NS 500 ML IV SCH ×2 (11:00)
[2017-08-03 12:00] VITALS: BP 138/79; PULSE 63; RESP 20; TEMP 97.4; O2SAT 96
--- NOTE | 2017-08-03 13:17 | HHI.PR ---
Subjective Remarks Follow up pneumonia. No events reported by nursing. Patient's diet advanced per speech therapy eval. Patient is nonverbal. Objective Vitals Vital Signs Date Time Temp Pulse Resp B/P (MAP) Pulse Ox O2 Delivery O2 Flow Rate FiO2 08/03/17 08:00 97.3 70 20 140/114 (123) 91 08/03/17 04:20 98.7 65 20 117/63 (81) 92 08/03/17 00:37 98.4 63 20 158/76 (103) 94 08/02/17 21:30 Room Air 08/02/17 20:23 98.1 70 22 170/76 (107) 93 08/02/17 20:00 70 08/02/17 18:50 17 08/02/17 16:00 97.4 77 20 169/88 (115) 91 I/O 08/02/17 08/02/17 08/02/17 08/03/17 08/03/17 08/03/17 07:00 15:00 23:00 07:00 15:00 23:00 Intake Total 865.5 ml 0 ml 0 ml Balance 865.5 ml 0 ml 0 ml Intake Oral 0 ml 0 ml 0 ml IV Total 865.5 ml # Voids 1 1 3 # Bowel Movements 0 0 Result Diagram: 08/03/17 0747 08/03/17 0747 Imaging Last Impressions Chest X-Ray 08/01/17 0000 Signed Impressions: Service Date/Time: July 20:11 - CONCLUSION: 1. Airspace consolidation at the lung bases and left perihilar region most characteristic of aspiration or pneumonia. No significant effusion. Aditya Mccabe MD Objective Remarks General: No acute distress. Heart: Regular rate and rhythm. No murmur. Lungs: Coarse breath sounds bilaterally. Breathing is nonlabored. Abdomen: Soft, nontender, nondistended. Extremities: No lower extremity edema. Contractures of all 4 extremities noted. Psych: Awake, nonverbal. Does not follow commands. Procedures None Urinary Catheter: No Vascular Central Line Catheter: No A/P Problem List: (1) Gastrostomy tube dysfunction ICD Code: K94.23 - Gastrostomy tube dysfunction Status: Acute (2) Choking ICD Code: T17.308A - Choking Status: Acute (3) Pneumonia ICD Code: J18.9 - Pneumonia, unspecified organism Status: Acute (4) Aspiration into lower respiratory tract ICD Code: T17.800A - Unspecified foreign body in other parts of respiratory tract causing asphyxiation, initial encounter Status: Acute Assessment and Plan 1. Aspiration pneumonia: Patient has chronic dysphagia and is on tube feeds. Continue IV antibiotics. Appreciate speech therapy recommendations (puree diet, pudding thick liquids). 2. Cerebral palsy: Chronic. 3. Seizure disorder: Continue antiepileptic medications. 4. DVT prophylaxis: Lovenox. Problem Qualifiers (1) Pneumonia: Qualified Codes: J69.0 - Pneumonitis due to inhalation of food and vomit (2) Aspiration into lower respiratory tract: Qualified Codes: T17.800A - Unspecified foreign body in other parts of respiratory tract causing asphyxiation, initial encounter Levi Crabtree MD Aug 03, 2017 13:17
[2017-08-03 16:00] VITALS: BP 99/78; PULSE 61; RESP 20; TEMP 98; O2SAT 94
[2017-08-03 20:00] VITALS: BP 128/83; PULSE 68; PULSE 72; RESP 22; TEMP 98.8; O2SAT 98
[2017-08-03] MEDS: QUEtiapine FUMARATE 100 MG TAB PO SCH (21:43)
[2017-08-03] MEDS: PHENobarbital 32.4 MG TAB G-TUBE SCH (21:43)
[2017-08-04] VITALS (7 sets, daily range): BP systolic 130–175; BP diastolic 64–99; PULSE 61–76; RESP 18–20; TEMP 97.3–99.5; O2SAT 94–95
[2017-08-04] MEDS: LORazepam 0.5 MG TAB PO PRN ×3 (00:13→23:48)
[2017-08-04] MEDS: VANCOMYCIN 1,500 MG/NS 500 ML IV SCH ×6 (00:13→22:51)
[2017-08-04] MEDS: ENOXAPARIN SODIUM 40 MG/0.4 ML SYRINGE SQ SCH (00:15)
[2017-08-04] MEDS: SODIUM CHLOR 0.9% 1000 ML INJ 1,000 ML IV SCH ×3 (02:21→22:21)
[2017-08-04] MEDS: PIPERACIL-TAZO 3.375 GM PREMIX 50 ML IV SCH ×3 (02:25→16:11)
[2017-08-04] MEDS: ACETAMINOPHEN/HYDROcodone 325 MG/10 MG TAB PO PRN ×3 (06:12→16:03)
[2017-08-04] MEDS: BACLOFEN 10 MG TAB G-TUBE SCH ×2 (08:25→20:25)
[2017-08-04] MEDS: DOCUSATE SODIUM 50 MG/SENNA 8.6 MG TAB PO SCH ×2 (08:25→20:25)
[2017-08-04] MEDS: QUEtiapine FUMARATE 25 MG TAB PO SCH (08:26)
[2017-08-04] MEDS: PANTOPRAZOLE SOD 20 MG DELAYED RELEASE TAB PO SCH (08:26)
[2017-08-04] MEDS: MULTIVITAMINS/MINERALS THERAPEUTIC TAB G-TUBE SCH (08:26)
[2017-08-04] MEDS: DOCUSATE SODIUM 100 MG CAP G-TUBE SCH (08:26)
[2017-08-04] MEDS: FOLIC ACID 1 MG TAB PO SCH (08:26)
[2017-08-04] MEDS: METOPROLOL TARTRATE 25 MG TAB PO SCH ×2 (08:27→20:25)
[2017-08-04] MEDS: FUROSEMIDE 20 MG TAB PO SCH (08:27)
[2017-08-04] MEDS: POLYETHYLENE GLYCOL 17 GM PKG PO SCH (08:27)
[2017-08-04] MEDS: SODIUM CHLORIDE 0.9% FLUSH 10 ML FLUSH IV FLUSH SCH ×2 (09:00→20:26)
[2017-08-04] MEDS ORDERED: PHARMACY ORDERED LAB ONE (10:45)
[2017-08-04] MEDS: LORazepam 1 MG TAB PO PRN (11:50)
--- NOTE | 2017-08-04 14:57 | HHI.PR ---
Subjective Remarks Follow up pneumonia. No events reported by nursing. Patient is nonverbal, appears to be resting comfortably. Objective Vitals Vital Signs Date Time Temp Pulse Resp B/P (MAP) Pulse Ox O2 Delivery O2 Flow Rate FiO2 08/04/17 14:25 68 08/04/17 12:00 98.6 66 20 160/79 (106) 95 08/04/17 08:00 97.7 69 20 162/99 (120) 94 08/04/17 07:12 20 08/04/17 07:00 Room Air 08/04/17 04:05 Room Air 08/04/17 04:00 97.3 61 20 130/77 (94) 94 08/04/17 00:00 Room Air 08/04/17 00:00 97.8 65 20 175/81 (112) 94 08/03/17 20:00 98.8 72 22 128/83 (98) 98 08/03/17 20:00 Room Air 08/03/17 20:00 68 08/03/17 16:00 98.0 61 20 99/78 (85) 94 I/O 08/03/17 08/03/17 08/03/17 08/04/17 08/04/17 08/04/17 07:00 15:00 23:00 07:00 15:00 23:00 Intake Total 0 ml 1306 ml 240 ml Balance 0 ml 1306 ml 240 ml Intake Oral 0 ml 0 ml 240 ml IV Total 1306 ml # Voids 3 4 3 5 2 # Bowel Movements 0 1 2 1 Result Diagram: 08/03/17 0747 08/03/17 0747 Imaging Last Impressions Chest X-Ray 08/01/17 0000 Signed Impressions: Service Date/Time: July 20:11 - CONCLUSION: 1. Airspace consolidation at the lung bases and left perihilar region most characteristic of aspiration or pneumonia. No significant effusion. Aditya Mccabe MD Objective Remarks General: No acute distress. Heart: Regular rate and rhythm. No murmur. Lungs: Coarse breath sounds bilaterally. Breathing is nonlabored. Abdomen: Soft, nontender, nondistended. Extremities: No lower extremity edema. Contractures of all 4 extremities noted. Psych: Awake, nonverbal. Does not follow commands. Procedures None Urinary Catheter: No Vascular Central Line Catheter: No A/P Problem List: (1) Gastrostomy tube dysfunction ICD Code: K94.23 - Gastrostomy tube dysfunction Status: Acute (2) Choking ICD Code: T17.308A - Choking Status: Acute (3) Pneumonia ICD Code: J18.9 - Pneumonia, unspecified organism Status: Acute (4) Aspiration into lower respiratory tract ICD Code: T17.800A - Unspecified foreign body in other parts of respiratory tract causing asphyxiation, initial encounter Status: Acute Assessment and Plan 1. Aspiration pneumonia: Patient has chronic dysphagia and is on tube feeds. Continue IV antibiotics. Appreciate speech therapy recommendations (puree diet, pudding thick liquids). Clinically improving. 2. Cerebral palsy: Chronic. 3. Seizure disorder: Continue antiepileptic medications. 4. DVT prophylaxis: Lovenox. Discharge Planning Possible discharge tomorrow. Problem Qualifiers (1) Pneumonia: Qualified Codes: J69.0 - Pneumonitis due to inhalation of food and vomit (2) Aspiration into lower respiratory tract: Qualified Codes: T17.800A - Unspecified foreign body in other parts of respiratory tract causing asphyxiation, initial encounter Levi Crabtree MD Aug 04, 2017 14:57
[2017-08-04] MEDS: PHENobarbital 32.4 MG TAB G-TUBE SCH (20:25)
[2017-08-04] MEDS: QUEtiapine FUMARATE 100 MG TAB PO SCH (20:25)
[2017-08-05] VITALS: BP 168/88; PULSE 85; RESP 22; TEMP 99.5; O2SAT 95
[2017-08-05] MEDS: ENOXAPARIN SODIUM 40 MG/0.4 ML SYRINGE SQ SCH (01:01)
[2017-08-05] MEDS: PIPERACIL-TAZO 3.375 GM PREMIX 50 ML IV SCH ×2 (01:01→08:22)
[2017-08-05 04:00] VITALS: BP 133/69; PULSE 62; RESP 20; TEMP 99.1; O2SAT 93
[2017-08-05 08:11] VITALS: BP 148/64; PULSE 82; RESP 18; TEMP 97.5; O2SAT 94
[2017-08-05] MEDS: DOCUSATE SODIUM 50 MG/SENNA 8.6 MG TAB PO SCH (08:21)
[2017-08-05] MEDS: METOPROLOL TARTRATE 25 MG TAB PO SCH (08:21)
[2017-08-05] MEDS: FOLIC ACID 1 MG TAB PO SCH (08:21)
[2017-08-05] MEDS: PANTOPRAZOLE SOD 20 MG DELAYED RELEASE TAB PO SCH (08:21)
[2017-08-05] MEDS: BACLOFEN 10 MG TAB G-TUBE SCH (08:21)
[2017-08-05] MEDS: MULTIVITAMINS/MINERALS THERAPEUTIC TAB G-TUBE SCH (08:21)
[2017-08-05] MEDS: DOCUSATE SODIUM 100 MG CAP G-TUBE SCH (08:22)
[2017-08-05] MEDS: QUEtiapine FUMARATE 25 MG TAB PO SCH (08:22)
[2017-08-05] MEDS: FUROSEMIDE 20 MG TAB PO SCH (08:22)
[2017-08-05] MEDS: POLYETHYLENE GLYCOL 17 GM PKG PO SCH (08:22)
[2017-08-05] MEDS: SODIUM CHLOR 0.9% 1000 ML INJ 1,000 ML IV SCH (08:22)
[2017-08-05] MEDS: LORazepam 1 MG TAB PO PRN (08:34)
[2017-08-05] MEDS: SODIUM CHLORIDE 0.9% FLUSH 10 ML FLUSH IV FLUSH SCH (08:38)
[2017-08-05 08:40] VITALS: PULSE 67
[2017-08-05] MEDS ORDERED: AUGM875T3 G-TUBE (10:03)
[2017-08-05] MEDS ORDERED: LORA-373 PO (10:03)
--- NOTE | 2017-08-05 10:03 | HHI.DCPOC ---
Discharge Care Plan Diagnosis: (1) Pneumonia (2) Aspiration into lower respiratory tract Goals to Promote Your Health * To prevent worsening of your condition and complications * To maintain your health at the optimal level Directions to Meet Your Goals Take your medications as prescribed Follow your dietary instruction Follow activity as directed Keep your appointments as scheduled Take your immunizations and boosters as scheduled If your symptoms worsen call your PCP, if no PCP go to Urgent Care Center or Emergency Room Smoking is Dangerous to Your Health. Avoid second hand smoke Call the 24-hour hour crisis hotline for domestic abuse at Levi Crabtree MD Aug 05, 2017 10:03
--- NOTE | 2017-08-05 10:12 | HHI.DS ---
Discharge Summary Admission Date Aug 02, 2017 at 00:23 Discharge Date: Aug 05, 2017 Admitting Diagnosis pneumonia. (1) Gastrostomy tube dysfunction ICD Code: K94.23 - Gastrostomy tube dysfunction Status: Acute (2) Choking ICD Code: T17.308A - Choking Status: Acute (3) Pneumonia ICD Code: J18.9 - Pneumonia, unspecified organism Status: Acute (4) Aspiration into lower respiratory tract ICD Code: T17.800A - Unspecified foreign body in other parts of respiratory tract causing asphyxiation, initial encounter Status: Acute Procedures None Brief History - From Admission Mr. Stephens is a 57 year old male. He has a history of cerebral palsy and has been nonverbal for life. He is unable to provide any history and his cognitive status makes him noncontributory. He was brought in by care providers secondary to suspicion of aspiration. He has been having increased cough recently. Imaging in the ER reveals that he does have evidence for aspiration pneumonia. Vancomycin and Zosyn have been provided. Patient is unable to express any pain or discomfort. CBC/BMP: 08/03/17 0747 08/03/17 0747 Significant Findings Laboratory Tests Test 08/03/17 07:47 08/04/17 12:00 Red Blood Count 4.46 MIL/MM3 (4.50-5.90) Monocytes (%) (Auto) 9.5 % (0.0-8.0) Creatinine 0.53 MG/DL (0.60-1.30) Alkaline Phosphatase 135 U/L (45-117) Vancomycin Level Trough 13.8 MCG/ML (5.0-10.0) Imaging Last Impressions Chest X-Ray 08/01/17 0000 Signed Impressions: Service Date/Time: July 20:11 - CONCLUSION: 1. Airspace consolidation at the lung bases and left perihilar region most characteristic of aspiration or pneumonia. No significant effusion. Aditya Mccabe MD PE at Discharge General: No acute distress. Heart: Regular rate and rhythm. No murmur. Lungs: Coarse breath sounds bilaterally. Breathing is nonlabored. Abdomen: Soft, nontender, nondistended. Extremities: No lower extremity edema. Contractures of all 4 extremities noted. Psych: Awake, nonverbal. Does not follow commands. Pt update on day of discharge No events reported by nursing. Patient does not indicate any discomfort at this time. He is nonverbal. Hospital Course The patient was admitted for management of aspiration pneumonia. He was continued on IV antibiotics. His respiratory status remained stable. He remained afebrile. Speech therapy evaluated the patient and initially he was kept nothing by mouth. His diet was advanced to pured diet with pudding thick liquids. He was felt to be stable for discharge back to nursing home facility. Pt Condition on Discharge: Stable Discharge Disposition: Discharge to SNF Discharge Time: > 30 minutes Discharge Instructions DIET: Follow Instructions for: Heart Healthy Diet Speech Therapy-Diet Recommends: Pureed, Pudding Thickened Liquids Activities you can perform: Regular-No Restrictions Follow up Referrals: PCP Follow-up - 1 Week New Medications: Amoxicillin-Clavulanate (Augmentin) 875-125 Mg Tab 1 TAB G-TUBE BID for Infection, #14 TAB 0 Refills Continued Medications: Acetaminophen (Acetaminophen ER) 650 Mg Tablet.er PO BID Baclofen (Baclofen) 10 Mg Tab 10 MG G-TUBE BID for Muscle Spasm, TAB 0 Refills Cyanocobalamin (B12) 1,000 Mcg Tab G-TUBE Docusate Sodium (Docusate Sodium) 100 Mg Cap 100 MG G-TUBE DAILY for Prevent Constipation, #60 CAP 0 Refills Folic Acid (Folic Acid) 0.8 Mg Tab 1000 MCG PO DAILY for Nutritional Supplement, TAB 0 Refills Furosemide (Furosemide) 20 Mg Tab 20 MG PO DAILY, #30 TAB 0 Refills Lorazepam (Lorazepam) 0.5 Mg Tab 0.5 MG PO BID PRN for ANXIETY, #6 TAB 0 Refills (This prescription has been renewed) Metoprolol Tartrate (Metoprolol Tartrate) 25 Mg Tab 25 MG PO BID, #60 TAB 0 Refills Multiple Vitamins W/ Minerals (Thera M Plus) 1 Tab 1 TAB G-TUBE DAILY for Nutritional Supplement, TAB 0 Refills Omeprazole (Omeprazole) 20 Mg Tab 20 MG PO DAILY, #30 TAB 0 Refills Phenobarbital (Phenobarbital) 97.2 Mg Tab 113.46 MG PO HS for Control Seizures, #30 TAB 0 Refills Polyethylene Glycol 3350 Powder (Miralax Powder) 17 Gm Powd 17 GM PO DAILY for Constipation, #1 CAN 0 Refills Mix and dissolve one measuring cap-ful (17 grams) in water or juice. Quetiapine (Seroquel) 100 Mg Tab 100 MG PO HS, #30 TAB 0 Refills Quetiapine (Seroquel) 25 Mg Tab 75 MG PO DAILY, #60 TAB 0 Refills Discontinued Medications: Lorazepam (Lorazepam) 1 Mg Tab 1 MG PO DAILY PRN for ANXIETY, TAB 0 Refills Lorazepam (Lorazepam) 1 Mg Tab 1 MG PO DAILY PRN for ANXIETY, TAB 0 Refills Levi Crabtree MD Aug 05, 2017 10:12
[2017-08-05] MEDS ORDERED: PHARMACY ORDERED LAB ONE (10:45)
[2017-08-05 12:11] VITALS: BP 106/56; PULSE 68; RESP 18; TEMP 97.5; O2SAT 91
== END 2017-08-05 14:00 | DRG 178 ==
LOC: NEPC 18:48 → NEDA 08-02 00:23 → N04B 08-02 01:06
PROVIDERS: ADMIT Family Medicine; ATTEND Family Medicine
DX: J69.0 Pneumonitis due to inhalation of food and vomit (principal); F73 Profound intellectual disabilities; R13.10 Dysphagia, unspecified; K94.23 Gastrostomy malfunction; M41.9 Scoliosis, unspecified; G80.9 Cerebral palsy, unspecified; G40.909 Epilepsy, unspecified, not intractable, without status epilepticus; K21.9 Gastro-esophageal reflux disease without esophagitis; R32 Unspecified urinary incontinence; I10 Essential (primary) hypertension; R62.50 Unspecified lack of expected normal physiological development in childhood; J84.9 Interstitial pulmonary disease, unspecified; Y83.3 Surgical operation with formation of external stoma as the cause of abnormal reaction of the patient, or of later complication, without mention of misadventure at the time of the procedure
CPT/HCPCS: 71020; 76937; 80053; 80202; 85025; 85610; 85730; 87040; 93005; 96365; 96366; 96372; J1650; J2060; J2543; J3370; J7030; J7040

== ENCOUNTER 2017-08-28 14:30 | Emergency (ER) | payer MEDICARE, OTHER ==
[~2017-08-28 14:30] MED LIST changes: -ABRE10CR TOP; +ACET1TAB63 PO; -ATIV2INJ2 IM; +AUGM875T3 G-TUBE; +BACL10TA G-TUBE; -BACL10TA GT; -BISA10R PR; -CLIN75S GT; +CYAN1TAB24 G-TUBE; -DILA50CH GT; -DIPH2%T PO/GT; +DOCU100C15 G-TUBE; -DUONI NEB; -FLEEENE3 PR; -FOLI1TAB GT; +FOLI800T PO; +FURO20TA PO; -LORA0.5T GT; +LORA0.5T PO; -LORA1TAB GT; -METO25 G-TUBE; +METO25TA3 PO; +MIRA3350 PO; -MIRA33502 GT; -OMEP20TA G-TUBE; +OMEP20TA93 PO; -PHEN97.2 GT; +PHENO100 PO; -PHENO15 GT; -PROM25R PR; -QUET1TAB67 GT; +SERO100T PO; +SERO25TA PO; -SERO50TA G-TUBE; -STOO100C GT; -TAB-TAB GT; +THERM G-TUBE; -VITA100020 G-TUBE
[2017-08-28 14:32] VITALS: BP 168/116
[2017-08-28] MEDS ORDERED: DILA100C PO (15:05)
[2017-08-28] MEDS ORDERED: PHEN16.2 PO (15:05)
--- NOTE | 2017-08-28 15:38 | PD ---
HPI Chief Complaint: Medical Clearance Time Seen by Provider: 15:05 Travel History International Travel<30 days: No Contact w/Intl Traveler<30days: No Traveled to known affect area: No History of Present Illness HPI Patient is a 57-year-old male with history of mental retardation, encephalopathy , convulsive disorders, scoliosis, GERD, [facility] for an [facility] of his chest. Patient presents to emergency room with a care provider [facility], reports that he was recently treated for pneumonia and was admitted to the hospital on August 02 and discharge on August 05, 2017. At discharge, patient was discharged with a prescription for Augmentin for 7 days via his PEG tube. As per care provider at bedside, patient has completed full course of antibiotics. Reports that he has not had any cough or congestion, reports no fevers or chills. Reports that patient's physician, Dr. Iyer sent him to the ER for an xray of the chest to rule out pneumonia vs CHF. Patient unable to provide history of present illness this time, patient nontoxic appearing. PFSH Past Medical History Cancer: No Cardiovascular Problems: No Developmental Delay: Yes (MENTAL RETARDATION) Diabetes: No Diminished Hearing: No Endocrine: No Gastrointestinal Disorders: Yes (CONSTIPATION, G TUBE) GERD: Yes Glaucoma: No Genitourinary: Yes (INCONTINENT OF URINE) Hepatitis: No Hypertension: Yes Implanted Vascular Access Dvce: Yes Medical other: Yes (DEVELOPMENTAL DELAY, GERD, SCOLIOSIS, ENCEPHALOPATHY, DYSPHAGIA) Musculoskeletal: Yes (SCOLIOSIS) Neurologic: Yes (ENCEPHALOPATHY, DYSPHAGIA, PROFOUND MR, CONVULSIVE D/O ) Psychiatric: Yes (PROFOUND MR) Reproductive: No Respiratory: Yes (ASPIRATION PNEUMONIA) Immunizations Current: Yes Pneumonia: Yes (HX OF ASPIRATION) Seizures: Yes Thyroid Disease: No Tetanus Vaccination: Unknown ?: Not Past Surgical History Abdominal Surgery: Yes (G TUBE INSERTION) Body Medical Devices: G-TUBE Cardiac Surgery: No Ear Surgery: No Endocrine Surgery: No Eye Surgery: No Genitourinary Surgery: No Gynecologic Surgery: No Oral Surgery: No Thoracic Surgery: No Other Surgery: Yes (PEG TUBE) Social History Alcohol Use: No Tobacco Use: No Substance Use: No Allergies-Medications (Allergen,Severity, Reaction): Coded Allergies: lamotrigine (Unverified Allergy, Severe, 08/01/17) Reported Meds & Prescriptions Reported Meds & Active Scripts Active Augmentin (Amoxicillin-Clavulanate) 875-125 Mg Tab 1 Tab G-TUBE BID Lorazepam 0.5 Mg Tab 0.5 Mg PO BID PRN Reported Phenobarbital 16.2 Mg Tab 16.2 Mg PO DAILY Dilantin (Phenytoin Extended) 100 Mg Cap 100 Mg PO TID B12 (Cyanocobalamin) 1,000 Mcg Tab G-TUBE Miralax Powder (Polyethylene Glycol 3350 Powder) 17 Gm Powd 17 Gm PO DAILY Mix and dissolve one measuring cap-ful (17 grams) in water or juice. Folic Acid 0.8 Mg Tab 1,000 Mcg PO DAILY Omeprazole 20 Mg Tab 20 Mg PO DAILY Furosemide 20 Mg Tab 20 Mg PO DAILY Metoprolol Tartrate 25 Mg Tab 25 Mg PO BID Acetaminophen ER (Acetaminophen) 650 Mg Tablet.er PO BID Baclofen 10 Mg Tab 10 Mg G-TUBE BID Seroquel (Quetiapine Fumarate) 25 Mg Tab 75 Mg PO DAILY Seroquel (Quetiapine Fumarate) 100 Mg Tab 100 Mg PO HS Phenobarbital 97.2 Mg Tab 113.46 Mg PO HS Docusate Sodium 100 Mg Cap 100 Mg G-TUBE DAILY Thera M Plus (Multivitamins/Minerals Therapeutic) 1 Tab 1 Tab G-TUBE DAILY Review of Systems ROS Limitations: Poor Historian, Other: (patient with history of mental retardation encephalopathy - he is unable to provide hpi) General / Constitutional: No: Fever, Chills Eyes: No: Visual changes HENT: No: Headaches Cardiovascular: No: Chest Pain or Discomfort Respiratory: No: Shortness of Breath Gastrointestinal: No: Abdominal Pain Genitourinary: No: Dysuria Musculoskeletal: No: Pain Skin: No Rash Neurologic: No: Weakness Psychiatric: No: Depression Endocrine: No: Polydipsia Hematologic/Lymphatic: No: Easy Bruising Physical Exam Exam Limitations: Poor Historian, Other: (patient with mental retardation as well as encephalopathy) Narrative GENERAL: Well-nourished, well-developed patient. SKIN: Focused skin assessment warm/dry. HEAD: Normocephalic. EYES: No scleral icterus. No injection or drainage. NECK: Supple, trachea midline. No JVD or lymphadenopathy. CARDIOVASCULAR: Regular rate and rhythm without murmurs, gallops, or rubs. RESPIRATORY: Breath sounds equal bilaterally. No accessory muscle use. GASTROINTESTINAL: Abdomen soft, non-tender, nondistended. MUSCULOSKELETAL: No cyanosis, or edema. BACK: Nontender without obvious deformity. No CVA tenderness. Data Data Last Documented VS Vital Signs Date Time Temp Pulse Resp B/P (MAP) Pulse Ox O2 Delivery O2 Flow Rate FiO2 08/28/17 16:12 97.7 86 22 189/111 (137) 92 Room Air Orders Orders Chest, Single Ap (08/28/17 14:55) MDM Medical Decision Making Medical Screen Exam Complete: Yes Emergency Medical Condition: Yes Medical Record Reviewed: Yes Differential Diagnosis Pneumonia, CHF exacerbation Narrative Course During the course of the patients emergency department visit, the patients history, examination, and differential diagnosis were reviewed X-rays of the chest was obtained. Radiology studies were reviewed and remarkable for: Last Impressions Chest X-Ray 08/28/17 1455 Signed Impressions: Service Date/Time: Saturday, August 28, 2017 15:40 - CONCLUSION: Stable abnormal chest appearance Yahir Decker MD There is mild perihilar and basilar interstitial infiltrates and some atelectasis present bilaterally. The aeration is fairly stable by comparison to the prior x-ray of the chest. Patient with similar appearance chest x-ray was compared to x-ray from his previous admission in July Patient is afebrile , no cough or congestion, plan to discharge patient to home with outpatient follow-up. Diagnosis Primary Impression: Encounter for routine chest x-ray Patient Instructions: General Instructions Additional Instructions: Please provide patient with a copy of their lab work and studies at discharge* * Please follow up with your primary care doctor in 2-3 days Return to the ER if symptoms worsen or progress Return to the ER as needed Disposition: 01 DISCHARGE HOME Condition: Stable Shabnam Gupta DO Aug 28, 2017 15:38
--- NOTE | 2017-08-28 15:55 | RADRPT ---
EXAM DATE/TIME: 08/28/2017 15:40 [facility] COMPARISON: CT ABDOMEN & PELVIS W/O CONTRAST, January 28, 2016, 16:59. CHEST PA & LAT, August 01, 2017, 20:11. INDICATIONS : Short of breath. MEDICAL HISTORY : Metal retardation, GERD, hx of aspiration, and seizures. SURGICAL HISTORY : None. ENCOUNTER: Initial ACUITY: 1 day PAIN SCORE: Non-responsive. LOCATION: Bilateral chest FINDINGS: A. 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 There is mild perihilar and basilar interstitial infiltrate and some atelectasis present bilateral ly. The aeration is fairly stable by comparison to the prior chest x-ray. The cardiac contours are gr ossly unchanged. CONCLUSION: Stable abnormal chest appearance Yahir Decker MD on August 28, 2017 at 15:51 Board Certified Radiologist. This report was verified electronically.
[2017-08-28 16:12] VITALS: BP 189/111; PULSE 86; RESP 22; TEMP 97.7; O2SAT 92
== END 2017-08-28 16:48 | disposition home or self-care (01) ==
LOC: NEPD 14:30
DX: R91.8 Other nonspecific abnormal finding of lung field (principal); I10 Essential (primary) hypertension; K21.9 Gastro-esophageal reflux disease without esophagitis; M41.9 Scoliosis, unspecified
CPT/HCPCS: 71010; 99283